=== PATIENT | female | born 1950 | race Caucasian/White ===

== ENCOUNTER 2019-05-08 02:54 | Emergency (ER) | payer OTHER ==
[2019-05-08 03:20] VITALS: BMI 31.6
[2019-05-08 04:05] LABS: BASO % 1.3 % (0-2.0); EOS % 2.8 % (0-4.5); HEMATOCRIT 38.7 % (32.4-45.2); HEMOGLOBIN 12.9 GM/dL (10.7-15.3); LYMPH % 39.6 % (8-40); MCHC 33.4 g/dl (32.0-36.0); MEAN CELL VOLUME 80.9 fl (80-96); MEAN PLT VOLUME 7.9 fl (7.5-11.1); MONO % 9.5 % (3.8-10.2); NEUT % 46.8 % (42.8-82.8); PLATELET COUNT 235 K/MM3 (134-434); RBC 4.78 M/mm3 (3.60-5.2); RDW 14.7 % (11.6-15.6)
--- NOTE | 2019-05-08 04:11 | PDOC ---
Attending Attestation - Resident Resident Name: Eulalio Dias - ED Attending Attestation I have performed the following: I have examined & evaluated the patient, The case was reviewed & discussed with the resident, I agree w/resident's findings & plan - HPI HPI: 05/08/19 06:17 Pt comes with atypical CP and chest flutter; states that she has a hx of afib States that she has been out of afib, given that she is on beta aditi and ca channel aditi. Pt also states that she has been feeling exhausted lately. - Physicial Exam PE: 05/08/19 06:15 Lungs are clear. Heart RRR; S1S2 Abd soft NT ND. No pitting edema in legs. Afebrile - Medical Decision Making 05/08/19 04:12 CBC normal Chem pending 05/08/19 06:18 Hypothyroud (as TSH is elevated) she will be asked to follow with her docs, and they can test T3 and T4. Card enzyme normal. Vitals normal Heart Score/ECG Review - ECG Intrepretation Rhythm: Regular Rhythm Comment:: 05/08/19 04:13 POOR BASELINE - [place]: Normal - P and TX Prominent R with upright T in V1 (true posterior GA): No
[2019-05-08 04:20] LABS: URINE APPEARANCE CLEAR; URINE BILIRUBIN NEGATIVE (NEGATIVE); URINE COLOR YELLOW; URINE GLUCOSE (UA) NEGATIVE (NEGATIVE); URINE KETONE NEGATIVE (NEGATIVE); URINE LEUK ESTERASE NEGATIVE (NEGATIVE); URINE NITRITE NEGATIVE (NEGATIVE); URINE PROTEIN NEGATIVE (NEGATIVE); URINE UROBILINOGEN 0.2 mg/dL (0.2-1.0)
[2019-05-08 04:29] LABS: ALBUMIN 3.6 g/dl (3.4-5.0); ALK PHOS 78 U/L (45-117); ANION GAP 6 MMOL/L (8-16); BILIRUBIN,TOTAL 0.3 mg/dL (0.2-1); BLOOD UREA NITROGEN 13.7 mg/dL (7-18); CHLORIDE 109 mmol/L (98-107); CO2 25 mmol/L (21-32); CREATININE 1.6 mg/dL (0.55-1.3); GLUCOSE,RANDOM 164 mg/dL (74-106); N-TERMINAL BNP 71.3 pg/ml (5-125); POTASSIUM 4.4 mmol/L (3.5-5.1); SGOT/AST 28 U/L (15-37); SGPT/ALT 41 U/L (13-61); SODIUM 141 mmol/L (136-145)
--- NOTE | 2019-05-08 05:44 | PDOC ---
History of Present Illness - General Chief Complaint: Chest Pain Stated Complaint: SOB/CHEST PAIN Time Seen by Provider: 05/08/19 03:34 - History of Present Illness Initial Comments: 05/08/19 05:48 69F with pmh of A-Fib, HTN, HLD, DM2, CAD and anxiety presents to the ED for "trembling" in her heart for the past few hours before presentation. The sensation feels like an arrhythmia, not really pain. She denies chest pain, pressure, sob, fever, nausea, vomiting, abdominal pain or leg swelling. No cough, hemoptysis, recent travel. Past History - Past Medical History Allergies/Adverse Reactions: Allergies Allergy/AdvReac Type Severity Reaction Status Date / Time ciprofloxacin [From Cipro] Allergy Unknown Verified 05/08/19 04:54 diphenhydramine Allergy Unknown Verified 05/08/19 04:54 [From Benadryl] Iodine and Iodide Containing Allergy Unknown Verified 05/08/19 04:54 Produc pseudoephedrine Allergy Unknown Verified 05/08/19 04:54 Home Medications: Ambulatory Orders Amlodipine Besylate 5 mg PO DAILY 05/08/19 Aspirin 81 mg PO DAILY 05/08/19 Atenolol [Tenormin -] 25 mg PO HS 05/08/19 Atenolol [Tenormin -] 50 mg PO DAILY 05/08/19 Cholecalciferol (Vitamin D3) [Vitamin D3] 1,000 unit PO DAILY 05/08/19 Clonazepam 1 mg PO TID 05/08/19 Insulin Aspart [Novolog] 32 unit SQ AC 05/08/19 Insulin Degludec [Tresiba] 75 unit SQ HS 05/08/19 Ely-3 Fatty Acids/Fish Oil [Fish Oil 1,000 mg Capsule] 1 each PO DAILY Pantoprazole Sodium 40 mg PO DAILY 05/08/19 Simvastatin 10 mg PO HS 05/08/19 COPD: No Diabetes: Yes GI Disorders: Yes HTN: Yes Hypercholesterolemia: Yes Psychiatric Problems: Yes (ANXIETY) - Immunization History Immunization Up to Date: Yes - Suicide/Smoking/Psychosocial Hx Smoking History: Never smoked Have you smoked in the past 12 months: No Information on smoking cessation initiated: No Hx Alcohol Use: No Drug/Substance Use Hx: No Review of Systems - Review of Systems Able to Perform ROS?: Yes Is the patient limited Tunisian proficient: No Constitutional: No: Symptoms Reported HEENTM: No: Symptoms Reported Respiratory: No: Symptoms reported Cardiac (ROS): No: Symptoms Reported ABD/GI: No: Symptoms Reported *Physical Exam - Vital Signs Last Vital Signs Temp Pulse Resp BP Pulse Ox 98.0 F 74 18 137/60 98 05/08/19 05:53 05/08/19 05:53 05/08/19 05:53 05/08/19 05:53 05/08/19 05:53 - Physical Exam General Appearance: Yes: Nourished, Appropriately Dressed. No: Apparent Distress HEENT: positive: EOMI, GRACE, Normal ENT Inspection Respiratory/Chest: positive: Lungs Clear, Normal Breath Sounds. negative: Chest Tender, Respiratory Distress Cardiovascular: positive: Regular Rhythm, Regular Rate, S1, S2 Gastrointestinal/Abdominal: positive: Normal Bowel Sounds, Flat, Soft. negative : Tender Musculoskeletal: positive: Normal Inspection. negative: CVA Tenderness Extremity: positive: Normal Capillary Refill, Normal Inspection, Normal Range of Motion Integumentary: positive: Normal Color, Dry, Warm Neurologic: positive: Fully Oriented, Alert, Normal Mood/Affect, Normal Response , Motor Strength 5/5 Heart Score/ECG Review - History History: Slightly suspicious - Electrocardiogram EKG: Normal - Age Age: >/= 65 - Risk Factors Risk Factors Heart Score: Yes Hx Hypercholesterolemia, Yes Hx Hypertension, Yes Hx Diabetes, No Smoking History, No Positive family hx of cardiac disease, Yes Hx Obesity Based on the list above the patient has:: >/=3 risk factors or Hx atherosclerotic disease - Troponin Troponin: </= normal limit - Score Heart Score - Total: 4 ED Treatment Course - LABORATORY CBC & Chemistry Diagram: 05/08/19 03:50 05/08/19 03:50 - ADDITIONAL ORDERS Additional order review: Laboratory Results 05/08/19 05/08/19 04:08 03:50 Sodium 141 Potassium 4.4 Chloride 109 H Carbon Dioxide 25 Anion Gap 6 L BUN 13.7 Creatinine 1.6 H Est GFR (CKD-EPI)AfAm 38.25 Est GFR (CKD-EPI)NonAf 33.00 Random Glucose 164 H Calcium 9.0 Total Bilirubin 0.3 AST 28 ALT 41 Alkaline Phosphatase 78 Troponin I < 0.02 B-Natriuretic Peptide 71.3 Total Protein 7.0 Albumin 3.6 TSH 4.25 H Urine Color Yellow Urine Appearance Clear Urine pH 7.0 Ur Specific Speed 1.002 L Urine Protein Negative Urine Glucose (UA) Negative Urine Ketones Negative Urine Blood Negative Urine Nitrite Negative Urine Bilirubin Negative Urine Urobilinogen 0.2 Ur Leukocyte Esterase Negative 05/08/19 03:50 RBC 4.78 MCV 80.9 MCHC 33.4 RDW 14.7 MPV 7.9 Neutrophils % 46.8 Lymphocytes % 39.6 Monocytes % 9.5 Eosinophils % 2.8 Basophils % 1.3 - RADIOLOGY Radiology Studies Ordered: Category Date Time Status CHEST X-RAY PORTABLE* [RAD] Stat Radiology 05/08/19 03:36 Ordered Medical Decision Making - Medical Decision Making 05/08/19 05:54 69F with pmh of A-Fib, HTN, HLD, DM2, CAD and anxiety presents to the ED for "trembling" in her heart for the past few hours before presentation. EKG: normal sinus rhythm. Differential diagnosis: paroxysmal afib, [place] vs hyperthyroidism, anxiety. All labs wnl except for creatinine mildly elevated. , negative ekg, negative trops, TSH elevated. Will follow up. Xray shows some opacities over lower left lobe. Patient and would like to leave to be seen by their own physician that knows them for the past 30 years. 05/08/19 06:16 Will give patient small bolus of NS and discharge. *DC/Admit/Observation/Transfer Diagnosis at time of Disposition: Palpitation - Discharge Dispostion Disposition: HOME Condition at time of disposition: Improved Decision to Admit order: No - Referrals - Patient Instructions Printed Discharge Instructions: DI for Atypical Chest Pain Additional Instructions: Follow up with your primary care physician within 1-2 days. Come back to the emergency department for any new, worsening or concerning symptoms. - Post Discharge Activity
[2019-05-08 05:54] VITALS: BP 137/60; PULSE 74; TEMP 98
[2019-05-08] MEDS ORDERED: SODIUM CHLORIDE 0.9% 500 ML INFUS.BAG IV ONE (06:14)
--- NOTE | 2019-05-08 10:31 | EKG ---
Test Reason : Blood Pressure : / mmHG Vent. Rate : 075 BPM Atrial Rate : 075 BPM P-R Int : 172 ms QRS Dur : 068 ms QT Int : 394 ms P-R-T Axes : 052 029 060 degrees QTc Int : 439 ms NORMAL SINUS RHYTHM NORMAL ECG NO PREVIOUS ECGS AVAILABLE Confirmed by DARIN WEBER MD ([id number]) on 05/08/2019 10:31:41 AM Referred By: Maria Luisa LUCIANO Confirmed By:DARIN WEBER MD
== END 2019-05-08 06:44 | disposition home or self-care (01) ==
LOC: JER 02:54
DX: R00.2 Palpitations (principal); I25.10 Atherosclerotic heart disease of native coronary artery without angina pectoris; I10 Essential (primary) hypertension; I48.91 Unspecified atrial fibrillation; E78.5 Hyperlipidemia, unspecified; E11.9 Type 2 diabetes mellitus without complications; Z79.4 Long term (current) use of insulin
CPT/HCPCS: 36415; 71045-TC-FY; 80053; 81003; 83880; 84443; 84484; 85025; 87086; 93005; 93010; 99284-25